=== PATIENT | female | born 1950 | race American Indian/Alaskan Native ===

== ENCOUNTER 2021-03-12 11:04 | Emergency (ER) | payer MEDICARE, MEDICAID ==
[2021-03-12] MEDS ORDERED: Sodium Chloride 0.9% 10 ML Syringe FLUSH PRN (11:23)
--- NOTE | 2021-03-12 11:25 | EDM.PDOC ---
<Chad Naidu - Last Filed: 03/13/21 04:56> ED HPI GENERAL MEDICAL PROBLEM - General Chief Complaint: General Stated Complaint: MEDICAL VIA NORTH Time Seen by Provider: 03/12/21 11:20 - Related Data Allergies Allergy/AdvReac Type Severity Reaction Status Date / Time sulfamethoxazole Allergy Diaphoresis Verified 03/12/21 11:11 [From Bactrim] trimethoprim [From Bactrim] Allergy Diaphoresis Verified 03/12/21 11:11 Home Meds: Home Meds Acetaminophen [Tylenol Extra Strength] 1,000 mg PO QID 03/12/21 [History] Alum Hydrox/Mag Hydrox/Simeth [Maalox Advanced] 10 ml PO Q6H PRN 03/12/21 [History] Amitriptyline [Elavil] 75 mg PO BEDTIME 03/12/21 [History] Apixaban [Eliquis] 5 mg PO BID 03/12/21 [History] Cholestyramine/Aspartame [Cholestyramine Light Powder] 1 dose PO DAILY 03/12/21 [History] FLUoxetine [PROzac] 20 mg PO DAILY 03/12/21 [History] Ferrous Sulfate 325 mg PO DAILY 03/12/21 [History] Lidocaine [Anecream] 1 applic TOP QID 03/12/21 [History] Melatonin 5 mg PO BEDTIME 03/12/21 [History] Menthol [Biofreeze] 1 applic TOP BID 03/12/21 [History] OLANZapine [Zyprexa] 5 mg PO DAILY 03/12/21 [History] Pantoprazole [ProTONIX] 40 mg PO DAILY 03/12/21 [History] carvediloL [Carvedilol] 3.125 mg PO BIDMEALS 03/12/21 [History] metFORMIN HCl [Metformin HCl ER] 1,000 mg PO DAILY 03/12/21 [History] Departure - Departure Disposition: DC/Tfer to [facility] Clinical Impression: Anemia Qualifiers: Anemia type: unspecified type Qualified Code(s): D64.9 - Anemia, unspecified - Discharge Information Instructions: Anemia Referrals: PCP,Unknown [Primary Care Provider] - Forms: ED Department Discharge Additional Instructions: Please follow-up with your primary care doctor recommend further evaluation of a possible bleeding source in your GI tract this may include colonoscopy and EGD. Call or return to the emergency department worsening of symptoms <OfficerRajinder - Last Filed: 03/13/21 07:26> ED HPI GENERAL MEDICAL PROBLEM - General Source of Information: Reports: Patient, EMS, RN Notes Reviewed History Limitations: Reports: No Limitations - History of Present Illness INITIAL COMMENTS - FREE TEXT/NARRATIVE: 7-year-old female presents emergency department today stating that she needs her blood drawn. She is not providing any significant history of why she is here. She denies anything on review of systems. Per EMS report states at the snf facility she was found to have a systolic blood pressure in the 80s EMS reports blood pressure has been fine for them however she was tachycardic in the 140s. Past Medical History Cardiovascular History: Reports: High Cholesterol Respiratory History: Reports: COPD, PE Psychiatric History: Reports: Dementia Endocrine/Metabolic History: Reports: Diabetes, Type II ED ROS GENERAL - Review of Systems Review Of Systems: See Below Constitutional: Reports: No Symptoms HEENT: Reports: No Symptoms Respiratory: Reports: No Symptoms Cardiovascular: Reports: No Symptoms Endocrine: Reports: No Symptoms GI/Abdominal: Reports: No Symptoms ED EXAM, GENERAL - Physical Exam Exam: See Below Exam Limited By: No Limitations General Appearance: Alert, WD/WN, No Apparent Distress Respiratory/Chest: No Respiratory Distress, Lungs Clear, Normal Breath Sounds, No Accessory Muscle Use, Chest Non-Tender Cardiovascular: Tachycardia GI/Abdominal: Soft, Non-Tender Course - Vital Signs Last Recorded V/S: Last Vital Signs Temp 97.2 F 03/12/21 20:15 Pulse 115 H 03/13/21 07:12 Resp 25 H 03/13/21 07:12 BP 137/89 03/13/21 07:12 Pulse Ox 93 L 03/13/21 07:12 - Orders/Labs/Meds Orders: Active Orders 24 hr Category Date Time Status Peripheral IV Care [RC] . DIRECTED Care 03/12/21 11:24 Active UA W/MICROSCOPIC [URIN] Urgent Lab 03/12/21 13:46 Ordered Lactated Ringers [Ringers, Lactated] 1,000 ml Med 03/12/21 11:30 Active IV .BOLUS Sodium Chloride 0.9% [Saline Flush] Med 03/12/21 11:23 Active 10 ml FLUSH ASDIRECTED PRN Isolation [COMM] Stat Oth 03/12/21 18:46 Ordered Peripheral IV Insertion Adult [OM.PC] Urgent Oth 03/12/21 11:23 Ordered Transfuse Red Blood Cells [COMM] Stat Ot 03/12/21 15:42 Ordered Medication Orders Lactated Ringer's (Ringers, Lactated) 1,000 mls @ 500 mls/hr IV .BOLUS GILDA Last Admin: 03/12/21 13:00 Dose: 500 mls/hr Documented by: ELISABETH Sodium Chloride (Sodium Chloride 0.9% 10 Ml Syringe) 10 ml FLUSH ASDIRECTED PRN PRN Reason: Keep Vein Open Last Admin: 03/12/21 13:01 Dose: 10 ml Documented by: [email or web address] Labs: Laboratory Tests 03/12/21 03/12/21 03/12/21 Range/Units 11:30 11:35 11:35 WBC 22.6 H (4.5-11.0) K/uL RBC 3.01 L (3.30-5.50) M/uL Hgb 7.8 L (12.0-15.0) g/dL Hct 26.7 L (36.0-48.0) % MCV 89 (80-98) fL MCH 26 L (27-31) pg MCHC 29 L (32-36) % Plt Count 745 H (150-400) K/uL Neut % (Auto) 84.4 H (36-66) % Lymph % (Auto) 9.3 L (24-44) % [place] % (Auto) 5.3 (2-6) % Eos % (Auto) 0.8 L (2-4) % Baso % (Auto) 0.2 (0-1) % D-Dimer, Quantitative (0.0-500.0) ng/mL Sodium 138 L (140-148) mmol/L Potassium 4.6 (3.6-5.2) mmol/L Chloride 105 (100-108) mmol/L Carbon Dioxide 24 (21-32) mmol/L Anion Gap 13.6 (5.0-14.0) mmol/L BUN 20 H (7-18) mg/dL Creatinine 1.1 H (0.6-1.0) mg/dL Est Cr Clr Drug Dosing 44.55 mL/min Estimated GFR (MDRD) 49 L (>60) Glucose 92 (74-106) mg/dL Lactic Acid (0.4-2.0) mmol/L Calcium 7.4 L (8.5-10.1) mg/dL Total Bilirubin 0.2 D (0.2-1.0) mg/dL AST 12 L (15-37) U/L ALT 11 L (12-78) U/L Alkaline Phosphatase 158 H (46-116) U/L Troponin I High Sens 4.6 (<=60.3) pg/mL C-Reactive Protein (0.0-0.3) mg/dL Total Protein 6.6 (6.4-8.2) g/dL Albumin 2.0 L (3.4-5.0) g/dL Globulin 4.6 H (2.3-3.5) g/dL Albumin/Globulin Ratio 0.4 L (1.2-2.2) Procalcitonin ng/mL Influenza Type A RNA (NEGATIVE) RSV RNA (INAAT) (NEGATIVE) Influenza Type B RNA (NEGATIVE) SARS-CoV-2 RNA (TONY) (NEGATIVE) Blood Type A POSITIVE Gel Antibody Screen Negative Crossmatch See Detail 03/12/21 03/12/21 03/12/21 Range/Units 11:35 11:35 11:35 WBC (4.5-11.0) K/uL RBC (3.30-5.50) M/uL Hgb (12.0-15.0) g/dL Hct (36.0-48.0) % MCV (80-98) fL MCH (27-31) pg MCHC (32-36) % Plt Count (150-400) K/uL Neut % (Auto) (36-66) % Lymph % (Auto) (24-44) % [place] % (Auto) (2-6) % Eos % (Auto) (2-4) % Baso % (Auto) (0-1) % D-Dimer, Quantitative (0.0-500.0) ng/mL Sodium (140-148) mmol/L Potassium (3.6-5.2) mmol/L Chloride (100-108) mmol/L Carbon Dioxide (21-32) mmol/L Anion Gap (5.0-14.0) mmol/L BUN (7-18) mg/dL Creatinine (0.6-1.0) mg/dL Est Cr Clr Drug Dosing mL/min Estimated GFR (MDRD) (>60) Glucose (74-106) mg/dL Lactic Acid 1.0 (0.4-2.0) mmol/L Calcium (8.5-10.1) mg/dL Total Bilirubin (0.2-1.0) mg/dL AST (15-37) U/L ALT (12-78) U/L Alkaline Phosphatase (46-116) U/L Troponin I High Sens (<=60.3) pg/mL C-Reactive Protein 6.35 H (0.0-0.3) mg/dL Total Protein (6.4-8.2) g/dL Albumin (3.4-5.0) g/dL Globulin (2.3-3.5) g/dL Albumin/Globulin Ratio (1.2-2.2) Procalcitonin 1.17 ng/mL Influenza Type A RNA (NEGATIVE) RSV RNA (INAAT) (NEGATIVE) Influenza Type B RNA (NEGATIVE) SARS-CoV-2 RNA (TONY) (NEGATIVE) Blood Type Gel Antibody Screen Crossmatch 03/12/21 03/12/21 Range/Units 11:35 18:45 WBC (4.5-11.0) K/uL RBC (3.30-5.50) M/uL Hgb (12.0-15.0) g/dL Hct (36.0-48.0) % MCV (80-98) fL MCH (27-31) pg MCHC (32-36) % Plt Count (150-400) K/uL Neut % (Auto) (36-66) % Lymph % (Auto) (24-44) % [place] % (Auto) (2-6) % Eos % (Auto) (2-4) % Baso % (Auto) (0-1) % D-Dimer, Quantitative 409.90 (0.0-500.0) ng/mL Sodium (140-148) mmol/L Potassium (3.6-5.2) mmol/L Chloride (100-108) mmol/L Carbon Dioxide (21-32) mmol/L Anion Gap (5.0-14.0) mmol/L BUN (7-18) mg/dL Creatinine (0.6-1.0) mg/dL Est Cr Clr Drug Dosing mL/min Estimated GFR (MDRD) (>60) Glucose (74-106) mg/dL Lactic Acid (0.4-2.0) mmol/L Calcium (8.5-10.1) mg/dL Total Bilirubin (0.2-1.0) mg/dL AST (15-37) U/L ALT (12-78) U/L Alkaline Phosphatase (46-116) U/L Troponin I High Sens (<=60.3) pg/mL C-Reactive Protein (0.0-0.3) mg/dL Total Protein (6.4-8.2) g/dL Albumin (3.4-5.0) g/dL Globulin (2.3-3.5) g/dL Albumin/Globulin Ratio (1.2-2.2) Procalcitonin ng/mL Influenza Type A RNA Negative (NEGATIVE) RSV RNA (INAAT) Negative (NEGATIVE) Influenza Type B RNA Negative (NEGATIVE) SARS-CoV-2 RNA (TONY) Negative (NEGATIVE) Blood Type Gel Antibody Screen Crossmatch Meds: Medications Generic Name Dose Route Start Last Admin Trade Name Freq PRN Reason Stop Dose Admin Lactated Ringer's 1,000 mls @ 500 mls/hr 03/12/21 11:30 03/12/21 13:00 Ringers, Lactated IV 500 mls/hr .BOLUS GILDA Administration Sodium Chloride 10 ml 03/12/21 11:23 03/12/21 13:01 Sodium Chloride 0.9% 10 Ml Syringe FLUSH 10 ml ASDIRECTED PRN Administration Keep Vein Open Departure - Departure Time of Disposition: 07:25 Condition: Poor Sepsis Event Note (ED) - Evaluation Sepsis Screening Result: No Definite Risk - Focused Exam Vital Signs: Vital Signs Temp Pulse Resp BP Pulse Ox 03/13/21 07:12 115 H 25 H 137/89 93 L 03/13/21 03:50 121 H 23 H 139/61 94 L 03/13/21 02:50 117 H 23 H 134/72 94 L 03/13/21 01:46 117 H 24 H 124/83 94 L 03/12/21 23:50 111 H 25 H 119/52 L 94 L 03/12/21 22:07 112 H 25 H 145/85 H 03/12/21 21:01 112 H 22 H 132/75 94 L 03/12/21 20:20 116 H 21 H 125/63 93 L 03/12/21 20:15 97.2 F 114 H 22 H 134/80 - My Orders Last 24 Hours: My Active Orders 03/12/21 11:23 Sodium Chloride 0.9% [Saline Flush] 10 ml FLUSH ASDIRECTED PRN Peripheral IV Insertion Adult [OM.PC] Urgent 03/12/21 11:24 Peripheral IV Care [RC] . DIRECTED 03/12/21 11:30 Lactated Ringers [Ringers, Lactated] 1,000 ml IV .BOLUS 03/12/21 13:46 UA W/MICROSCOPIC [URIN] Urgent 03/12/21 15:42 Transfuse Red Blood Cells [COMM] Stat 03/12/21 18:46 Isolation [COMM] Stat - Assessment/Plan Last 24 Hours: My Active Orders 03/12/21 11:23 Sodium Chloride 0.9% [Saline Flush] 10 ml FLUSH ASDIRECTED PRN Peripheral IV Insertion Adult [OM.PC] Urgent 03/12/21 11:24 Peripheral IV Care [RC] . DIRECTED 03/12/21 11:30 Lactated Ringers [Ringers, Lactated] 1,000 ml IV .BOLUS 03/12/21 13:46 UA W/MICROSCOPIC [URIN] Urgent 03/12/21 15:42 Transfuse Red Blood Cells [COMM] Stat 03/12/21 18:46 Isolation [COMM] Stat Plan: Assessment Acuity = acute Site and laterality = symptomatic anemia, complicated in patient with multiple medical problems Etiology = suspicious for underlying GI bleed Manifestations = dizziness now improved Location of injury = Home Lab values = WBC elevated 22.6 consistent with leukocytosis however review of records show that this leukocytosis has been there for several years hemoglobin low at 7.8 after 1 unit of blood now 9.4 platelets 745 consistent thrombocytosis creatinine elevated 1.1 consistent chronic renal failure stage T3a, calcium low at 7.4 consistent with hypocalcemia CRP elevated 6.35 procalcitonin indeterminate range at 1.17 Covid was negative chest x-ray no acute process. Unsuccessful obtaining a urinalysis Plan I did talk to her about options I think she would benefit from further evaluation of the anemia which may include endoscopy also I am suspicious for underlying disease process such as CLL given her elevated white count for several years. However she is not interested in any further work-up would just like to return home and will discuss this with her primary care doctor. On the snf paperwork states she makes her own decisions even though she does have a history of dementia. Therefore will honor her wishes and contact [facility] for transportation back to [facility] This note was dictated using [employer] voice recognition software please call with any questions on syntax or grammar.
[2021-03-12] MEDS ORDERED: Lactated Ringers 1,000 ML IV SCH (11:30)
--- NOTE | 2021-03-12 14:18 | CRLCR ---
For Patients: As a result of the Century Cures Act, medical imaging exams and procedure reports are released immediately into your electronic medical record. You may view this report before your referring provider. If you have questions, please contact your health care provider. INDICATION: CHEST PAIN PREV SENT FROM MAR 2020 TECHNIQUE: Chest 1 view. COMPARISON: 04/11/20 FINDINGS: Cardiovascular and mediastinum: Heart size and vasculature are normal in caliber and appearance. Mediastinum is within normal limits. Lungs and pleural space: Lungs are clear. No sign of infiltrate or mass. No sign of pleural effusion. No pneumothorax. Bones and soft tissues: No significant findings. IMPRESSION: Unremarkable chest. Dictated by: Burton Heard MD @ 03/12/2021 14:17:00 (Electronically Signed)
[2021-03-12 21:24] LABS: CORONAVIRUS COVID-19 NAA NEGATIVE (NEGATIVE)
== END 2021-03-13 10:08 ==
LOC: JP.ED 11:04
DX: D64.9 Anemia, unspecified (principal); I10 Essential (primary) hypertension; E78.00 Pure hypercholesterolemia, unspecified; J44.9 Chronic obstructive pulmonary disease, unspecified; E11.9 Type 2 diabetes mellitus without complications; Z88.1 Allergy status to other antibiotic agents; Z79.01 Long term (current) use of anticoagulants; Z79.899 Other long term (current) drug therapy; Z79.84 Long term (current) use of oral hypoglycemic drugs; Z20.822 Contact with and (suspected) exposure to COVID-19
CPT/HCPCS: 0241U; 36415; 36430; 71045; 80053; 83605; 84145; 84443; 84484; 85025; 85027; 85379; 86140; 86850; 86900; 86901; 86920; 86922; 99285; J7120; P9016

== ENCOUNTER 2021-03-25 13:10 | Emergency (ER) | payer MEDICARE, MEDICAID ==
[2021-03-25] MEDS ORDERED: Sodium Chloride 0.9% 10 ML Syringe FLUSH PRN (13:28)
[2021-03-25] MEDS ORDERED: Sodium Chloride 0.9% 1,000 ML IV ONE (14:27)
--- NOTE | 2021-03-25 14:52 | EDM.PDOC ---
ED HPI GENERAL MEDICAL PROBLEM - General Chief Complaint: Gastrointestinal Problem Stated Complaint: MEDICAL VIA NORTH Time Seen by Provider: 03/25/21 14:05 Source of Information: Reports: Patient, EMS, Old Records History Limitations: Reports: No Limitations - History of Present Illness INITIAL COMMENTS - FREE TEXT/NARRATIVE: 70 yo female presents with dark, loose stools as well as frequent falling. Sx's getting slowly worse over the past couple of months. Was seen here a couple weeks ago and got 1 unit of blood. Is on iron currently. No abdominal pain or nausea/vomiting. Has not been seen lately by her primary. Has not had any significant injury from any of her falls. Does use a walker. Says she gets light-headed when walking and goes down. Onset: Gradual Duration: Other ( a couple months. ) Location: Reports: Generalized Quality: Reports: Other (pain is not reported) Severity: Mild (diarrhea) Improves with: Reports: None Worsens with: Reports: None Context: Reports: Other (unknown) Associated Symptoms: Reports: Other (dark stools, light-headed with standing at times, diarrhea). Denies: Fever/Chills, Nausea/Vomiting Treatments FINAL ASSEMBLER: Reports: Other (see below) (none) - Related Data Allergies Allergy/AdvReac Type Severity Reaction Status Date / Time sulfamethoxazole Allergy Diaphoresis Verified 03/25/21 13:19 [From Bactrim] trimethoprim [From Bactrim] Allergy Diaphoresis Verified 03/25/21 13:19 Home Meds: Home Meds Acetaminophen [Tylenol Extra Strength] 1,000 mg PO QID 03/12/21 [History] Alum Hydrox/Mag Hydrox/Simeth [Maalox Advanced] 10 ml PO Q6H PRN 03/12/21 [History] Amitriptyline [Elavil] 75 mg PO BEDTIME 03/12/21 [History] Apixaban [Eliquis] 5 mg PO BID 03/12/21 [History] Cholestyramine/Aspartame [Cholestyramine Light Powder] 1 dose PO DAILY 03/12/21 [History] FLUoxetine [PROzac] 20 mg PO DAILY 03/12/21 [History] Ferrous Sulfate 325 mg PO DAILY 03/12/21 [History] Lidocaine [Anecream] 1 applic TOP QID 03/12/21 [History] Melatonin 5 mg PO BEDTIME 03/12/21 [History] Menthol [Biofreeze] 1 applic TOP BID 03/12/21 [History] OLANZapine [Zyprexa] 5 mg PO DAILY 03/12/21 [History] Pantoprazole [ProTONIX] 40 mg PO DAILY 03/12/21 [History] carvediloL [Carvedilol] 3.125 mg PO BIDMEALS 03/12/21 [History] metFORMIN HCl [Metformin HCl ER] 1,000 mg PO DAILY 03/12/21 [History] cephALEXin [Cephalexin] 500 mg PO TID #14 capsule 03/25/21 [Rx] Past Medical History Cardiovascular History: Reports: High Cholesterol Respiratory History: Reports: COPD, PE Gastrointestinal History: Reports: None Musculoskeletal History: Reports: Osteoarthritis Psychiatric History: Reports: Dementia Endocrine/Metabolic History: Reports: Diabetes, Type II Hematologic History: Reports: Anemia - Past Surgical History GI Surgical History: Reports: Appendectomy, Cholecystectomy Endocrine Surgical History: Reports: None Musculoskeletal Surgical History: Reports: Knee Replacement, Other (See Below) Other Musculoskeletal Surgeries/Procedures:: left knee replacement Social & Family History - Tobacco Use Tobacco Use Status *Q: Former Tobacco User Used Tobacco, but Quit: Yes Month/Year Tobacco Last Used: 2019 - Caffeine Use Caffeine Use: Reports: Coffee, Soda, Tea - Recreational Drug Use Recreational Drug Use: No ED ROS GENERAL - Review of Systems Review Of Systems: See Below Constitutional: Reports: No Symptoms HEENT: Reports: No Symptoms Respiratory: Reports: No Symptoms Cardiovascular: Reports: Lightheadedness Endocrine: Reports: No Symptoms GI/Abdominal: Reports: Black Stool, Diarrhea. Denies: Abdominal Pain, Bloody Stool, Distension, Hematemesis, Hematochezia, Nausea, Vomiting : Reports: No Symptoms Musculoskeletal: Reports: No Symptoms Skin: Reports: No Symptoms Neurological: Reports: No Symptoms Psychiatric: Reports: No Symptoms ED EXAM, GI/ABD - Physical Exam Exam: See Below Exam Limited By: No Limitations General Appearance: Alert, WD/WN, No Apparent Distress Eyes: Bilateral: Normal Appearance Ears: Normal External Exam, Normal Canal, Hearing Grossly Normal, Normal TMs Nose: Normal Inspection, No Blood Throat/Mouth: Normal Inspection, Normal Lips, Normal Oropharynx, Normal Voice, No Airway Compromise Head: Atraumatic, Normocephalic Neck: Normal Inspection Respiratory/Chest: No Respiratory Distress, Lungs Clear, Normal Breath Sounds, No Accessory Muscle Use Cardiovascular: Regular Rate, Rhythm, No Edema GI/Abdominal Exam: Normal Bowel Sounds, Soft, Non-Tender, No Distention. No: Distended (Female) Exam: Other (rectal: stool dark, no impactions, no masses. ) Rectal (Female) Exam: Other (rectal: stool dark, no masses, no impactions. ) Back Exam: Normal Inspection. No: CVA Tenderness (R), CVA Tenderness (L) Extremities: Normal Inspection, Normal Range of Motion, Non-Tender, No Pedal Edema Neurological: Alert, Oriented, CN II-XII Intact, Normal Cognition, No Motor/Sensory Deficits Psychiatric: Normal Affect, Normal Mood Skin Exam: Warm, Dry, Intact, Normal Color, No Rash Course - Vital Signs Last Recorded V/S: Last Vital Signs Temp 36.2 C 03/25/21 13:18 Pulse 110 H 03/25/21 16:01 Resp 18 03/25/21 16:01 BP 144/68 H 03/25/21 16:01 Pulse Ox 98 03/25/21 16:01 - Orders/Labs/Meds Orders: Active Orders 24 hr Category Date Time Status CULTURE URINE [RM] Stat Lab 03/25/21 15:25 Received REFLEX LACTIC ACID YES OR NO [CHEM] Routine Lab 03/25/21 14:48 Received Sodium Chloride 0.9% [Normal Saline] 1,000 ml Med 03/25/21 15:30 Active IV ASDIRECTED Sodium Chloride 0.9% [Saline Flush] Med 03/25/21 13:28 Active 10 ml FLUSH ASDIRECTED PRN cefTRIAXone [Rocephin] 1 gm Med 03/25/21 16:00 Active Sodium Chloride 0.9% [Normal Saline AdvBag] 50 ml IV Q24H Saline Lock Insert [OM.PC] Routine Oth 03/25/21 13:28 Ordered Medication Orders Ceftriaxone Sodium 1 gm/ (Sodium Chloride) 50 mls @ 100 mls/hr IV Q24H [facility] Last Admin: 03/25/21 15:59 Dose: 100 mls/hr Documented by: PREILOR Sodium Chloride (Normal Saline) 1,000 mls @ 150 mls/hr IV ASDIRECTED GILDA Last Admin: 03/25/21 15:58 Dose: 150 mls/hr Documented by: PREILOR Sodium Chloride (Sodium Chloride 0.9% 10 Ml Syringe) 10 ml FLUSH ASDIRECTED PRN PRN Reason: Keep Vein Open Last Admin: 03/25/21 14:44 Dose: 10 ml Documented by: PREILOR Labs: Laboratory Tests 03/25/21 03/25/21 03/25/21 Range/Units 13:40 13:40 13:42 WBC 22.0 H (4.5-11.0) K/uL RBC 3.56 (3.30-5.50) M/uL Hgb 9.3 L (12.0-15.0) g/dL Hct 31.6 L (36.0-48.0) % MCV 89 (80-98) fL MCH 26 L (27-31) pg MCHC 29 L (32-36) % Plt Count 754 H (150-400) K/uL Sodium (140-148) mmol/L Potassium (3.6-5.2) mmol/L Chloride (100-108) mmol/L Carbon Dioxide (21-32) mmol/L Anion Gap (5.0-14.0) mmol/L BUN (7-18) mg/dL Creatinine (0.6-1.0) mg/dL Est Cr Clr Drug Dosing mL/min Estimated GFR (MDRD) (>60) Glucose (74-106) mg/dL Lactic Acid 3.3 H (0.4-2.0) mmol/L Calcium (8.5-10.1) mg/dL C-Reactive Protein 5.89 H (0.0-0.3) mg/dL Urine Color (YELLOW) Urine Appearance (CLEAR) Urine pH (5.0-8.0) Ur Specific [place] (1.008-1.030) Urine Protein (NEGATIVE) mg/dL Urine Glucose (UA) (NEGATIVE) mg/dL Urine Ketones (NEGATIVE) mg/dL Urine Occult Blood (NEGATIVE) Urine Nitrite (NEGATIVE) Urine Bilirubin (NEGATIVE) Urine Urobilinogen (0.2-1.0) EU/dL Ur Leukocyte Esterase (NEGATIVE) Urine RBC (0-5) Urine WBC (0-5) Ur Epithelial Cells Amorphous Sediment Urine Bacteria Urine Mucus 03/25/21 03/25/21 Range/Units 13:42 14:55 WBC (4.5-11.0) K/uL RBC (3.30-5.50) M/uL Hgb (12.0-15.0) g/dL Hct (36.0-48.0) % MCV (80-98) fL MCH (27-31) pg MCHC (32-36) % Plt Count (150-400) K/uL Sodium 141 (140-148) mmol/L Potassium 5.2 (3.6-5.2) mmol/L Chloride 107 (100-108) mmol/L Carbon Dioxide 21 (21-32) mmol/L Anion Gap 12.6 (5.0-14.0) mmol/L BUN 24 H D (7-18) mg/dL Creatinine 1.1 H (0.6-1.0) mg/dL Est Cr Clr Drug Dosing 44.55 mL/min Estimated GFR (MDRD) 49 L (>60) Glucose 153 H (74-106) mg/dL Lactic Acid (0.4-2.0) mmol/L Calcium 7.6 L (8.5-10.1) mg/dL C-Reactive Protein (0.0-0.3) mg/dL Urine Color Yellow (YELLOW) Urine Appearance Slightly cloudy A (CLEAR) Urine pH 5.5 (5.0-8.0) Ur Specific [place] 1.020 (1.008-1.030) Urine Protein 30 H (NEGATIVE) mg/dL Urine Glucose (UA) Negative (NEGATIVE) mg/dL Urine Ketones Negative (NEGATIVE) mg/dL Urine Occult Blood Small H (NEGATIVE) Urine Nitrite Positive H (NEGATIVE) Urine Bilirubin Negative (NEGATIVE) Urine Urobilinogen 0.2 (0.2-1.0) EU/dL Ur Leukocyte Esterase Trace H (NEGATIVE) Urine RBC 5-10 H (0-5) Urine WBC >100 H (0-5) Ur Epithelial Cells Moderate Amorphous Sediment Few Urine Bacteria Many Urine Mucus Not seen Meds: Medications Generic Name Dose Route Start Last Admin Trade Name Freq PRN Reason Stop Dose Admin Ceftriaxone Sodium 1 gm/ 50 mls @ 100 mls/hr 03/25/21 16:00 03/25/21 15:59 Sodium Chloride IV 100 mls/hr Q24H GILDA Administration Sodium Chloride 1,000 mls @ 150 mls/hr 03/25/21 15:30 03/25/21 15:58 Normal Saline IV 150 mls/hr ASDIRECTED GILDA Administration Sodium Chloride 10 ml 03/25/21 13:28 03/25/21 14:44 Sodium Chloride 0.9% 10 Ml Syringe FLUSH 10 ml ASDIRECTED PRN Administration Keep Vein Open Discontinued Medications Generic Name Dose Route Start Last Admin Trade Name Freq PRN Reason Stop Dose Admin Sodium Chloride 1,000 mls @ 1,000 mls/hr 03/25/21 14:27 03/25/21 14:43 Normal Saline IV 03/25/21 15:26 1,000 mls/hr .BOLUS ONE Administration Departure - Departure Time of Disposition: 16:35 Disposition: Home, Self-Care 01 Condition: Fair Clinical Impression: Mild dehydration, Fall in elderly patient UTI (urinary tract infection) Qualifiers: Urinary tract infection type: site unspecified Hematuria presence: without hematuria Qualified Code(s): N39.0 - Urinary tract infection, site not specified - Discharge Information *PRESCRIPTION DRUG MONITORING PROGRAM REVIEWED*: Not Applicable *COPY OF PRESCRIPTION DRUG MONITORING REPORT IN PATIENT [facility]: Not Applicable Prescriptions: cephALEXin [Cephalexin] 500 mg PO TID #14 capsule Instructions: Urinary Tract Infection, Adult, [id number], Dehydration, Adult, [id number] Referrals: PCP,Unknown [Primary Care Provider] - Forms: ED Department Discharge Additional Instructions: Drink more fluids. Take cephalexin every 8 hrs starting at suppertime tomorrow until gone. Recheck with your provider the end of this week to review your pending urine culture and adjust your antibiotics. Before you walk sit at the side of the bed with feet dangling for awhile. Then stand and hold on for a couple minutes before you take off walking-hopefully, this will reduce your risk of falling. Support stockings can also help with preventing your blood pressure from dropping when you stand that leads to light-headedness. Use loperamide 2 mg every 8 hrs as needed for diarrhea. Sepsis Event Note (ED) - Evaluation Sepsis Screening Result: No Definite Risk - Focused Exam Vital Signs: Vital Signs Temp Pulse Resp BP Pulse Ox 03/25/21 16:01 110 H 18 144/68 H 98 03/25/21 15:05 114 H 137/83 03/25/21 13:18 36.2 C 117 H 16 132/70 97 03/25/21 13:16 36.2 C 117 H 16 132/70 97 - My Orders Last 24 Hours: My Active Orders 03/25/21 13:28 Sodium Chloride 0.9% [Saline Flush] 10 ml FLUSH ASDIRECTED PRN Saline Lock Insert [OM.PC] Routine 03/25/21 14:48 REFLEX LACTIC ACID YES OR NO [CHEM] Routine 03/25/21 15:25 CULTURE URINE [RM] Stat 03/25/21 15:30 Sodium Chloride 0.9% [Normal Saline] 1,000 ml IV ASDIRECTED 03/25/21 16:00 cefTRIAXone [Rocephin] 1 gm Sodium Chloride 0.9% [Normal Saline AdvBag] 50 ml IV Q24H - Assessment/Plan Last 24 Hours: My Active Orders 03/25/21 13:28 Sodium Chloride 0.9% [Saline Flush] 10 ml FLUSH ASDIRECTED PRN Saline Lock Insert [OM.PC] Routine 03/25/21 14:48 REFLEX LACTIC ACID YES OR NO [CHEM] Routine 03/25/21 15:25 CULTURE URINE [RM] Stat 03/25/21 15:30 Sodium Chloride 0.9% [Normal Saline] 1,000 ml IV ASDIRECTED 03/25/21 16:00 cefTRIAXone [Rocephin] 1 gm Sodium Chloride 0.9% [Normal Saline AdvBag] 50 ml IV Q24H
[2021-03-25] MEDS ORDERED: Sodium Chloride 0.9% 1,000 ML IV SCH (15:30)
[2021-03-25] MEDS ORDERED: cefTRIAXone 1 GM in Sodium Chloride 0.9% 50 ML IV SCH (16:00)
[2021-03-25] MEDS ORDERED: Loperamide 2 MG Cap PO ONE (16:12)
== END 2021-03-25 16:45 | disposition home or self-care (01) ==
LOC: JP.ED 13:10
DX: N39.0 Urinary tract infection, site not specified (principal); E86.0 Dehydration; E78.00 Pure hypercholesterolemia, unspecified; J44.9 Chronic obstructive pulmonary disease, unspecified; E11.9 Type 2 diabetes mellitus without complications; M19.90 Unspecified osteoarthritis, unspecified site; Z88.1 Allergy status to other antibiotic agents; Z79.01 Long term (current) use of anticoagulants; Z79.84 Long term (current) use of oral hypoglycemic drugs; Z79.899 Other long term (current) drug therapy
CPT/HCPCS: 36415; 80048; 81001; 82272; 83605; 85027; 86140; 87086; 87088; 87186; 96365; 99284; A9270; J0696; J7030